=== PATIENT | female | born 1980 | race Caucasian/White ===

== ENCOUNTER 2017-11-24 20:38 | Emergency (ER) | payer SELFPAY, MEDICAID | END 2017-11-24 22:14 | disposition left against medical advice (07) | LOC: FTE 20:38 | DX: Z53.21 Procedure and treatment not carried out due to patient leaving prior to being seen by health care provider (principal) ==

== ENCOUNTER 2018-09-30 08:32 | Outpatient (CLI) | payer MEDICAID | END 2018-09-30 10:00 | disposition home or self-care (01) | LOC: OBT 08:32 → L-D 08:32 → OBT 10:00 | DX: O36.8130 Decreased fetal movements, third trimester, not applicable or unspecified (principal); O09.523 Supervision of elderly multigravida, third trimester; Z3A.40 40 weeks gestation of pregnancy | CPT/HCPCS: 76815; 76818 ==

== ENCOUNTER 2018-10-05 12:58 | Inpatient (IN) | payer MEDICAID ==
[2018-10-05] MEDS ORDERED: IBUPROFEN 600 MG TAB PO (14:30)
[2018-10-05] MEDS ORDERED: OXYTOCIN 30 UNITS/LR 500 ML IV (14:30)
[2018-10-05] MEDS ORDERED: OXYCODONE/ASPIRIN (4.88/325) TAB PO ×3 (14:30→21:30)
[2018-10-05] MEDS ORDERED: MISOPROSTOL 200 MCG TAB PR (14:30)
[2018-10-05] MEDS ORDERED: METHYLERGONOVINE 0.2 MG INJ IM (14:30)
[2018-10-05] MEDS ORDERED: LIDOCAINE 1% (MPF) 30 ML INJ INJ (14:30)
[2018-10-05] MEDS ORDERED: CARBOPROST 250 MCG INJ IM (14:30)
[2018-10-05] MEDS ORDERED: BUTORPHANOL 2 MG INJ IV (14:30)
[2018-10-05 15:35] LABS: ADD MAN DIFF? NO
[2018-10-05 15:37] LABS: BASOPHILS % 0.3 % (0.0-2.0); EOSINOPHILS # 0.3 10^3/ul (0.0-0.5); EOSINOPHILS % 2.5 % (0.0-7.0); HEMATOCRIT 38.1 % (37.0-47.0); HEMOGLOBIN 12.8 g/dl (12.0-16.0); LYMPHOCYTES # 1.8 10^3/ul (0.8-2.9); MEAN CORPUSCULAR HEMOGLOBIN 29.8 pg (29.0-33.0); MEAN CORPUSCULAR HGB CONC 33.6 g/dl (32.0-37.0); MEAN CORPUSCULAR VOLUME 88.6 fl (82.0-101.0); MEAN PLATELET VOLUME 10.6 fl (7.4-10.4); MONOCYTE # 0.6 10^3/ul (0.3-0.9); MONOCYTES % 5.7 % (0.0-11.0); NEUTROPHIL # 7.2 10^3/ul (1.6-7.5); NEUTROPHILS % 73.2 % (39.0-77.0); PLATELET COUNT 215 10^3/UL (140-415)
[2018-10-05 15:37] LABS: WHITE BLOOD COUNT 9.9 10^3/ul (4.8-10.8)
[2018-10-05 15:51] LABS: INR 0.93; PROTIME 12.6 Sec (11.9-14.9)
[2018-10-05 15:52] LABS: PARTIAL THROMBOPLASTIN TIME 25.2 Sec (23.0-35.0)
[2018-10-05 16:27] LABS: HEPATITIS B SURFACE ANTIGEN NEGATIVE (NEGATIVE)
[2018-10-05] MEDS: OXYTOCIN 30 UNITS/LR 500 ML IV ×4 (17:16→21:08)
[2018-10-05] MEDS: LACTATED RINGER'S 1,000 ML IV (18:24)
[2018-10-05] MEDS: BUTORPHANOL 2 MG INJ IV (18:30)
[2018-10-05] MEDS: MINERAL OIL LIGHT 10 ML VIAL TOP (19:36)
[2018-10-05 20:52] LABS: RAPID PLASMA REAGIN NONREACTIVE (NR)
[2018-10-05] MEDS ORDERED: LANOLIN 7 GM TUBE TOP (21:30)
[2018-10-05] MEDS ORDERED: ACETAMINOPHEN 325 MG TAB PO (21:30)
[2018-10-05] MEDS ORDERED: BENZOCAINE 20% 56 ML SPRAY TOP (21:30)
[2018-10-05] MEDS ORDERED: HYDROCODONE/APAP (5/325) TAB PO (21:30)
[2018-10-05] MEDS ORDERED: WITCH HAZEL/GLYCERIN PAD PR (21:30)
[2018-10-05] MEDS ORDERED: ONDANSETRON 4 MG INJ IV (21:30)
[2018-10-05] MEDS: SENNA/DOCUSATE NA (8.6MG/50MG) TAB PO (22:25)
[2018-10-05] MEDS: HYDROCODONE/APAP (5/325) TAB PO (22:29)
[2018-10-06] MEDS: IBUPROFEN 600 MG TAB PO ×5 (00:05→23:39)
[2018-10-06] MEDS: OXYTOCIN 30 UNITS/LR 500 ML IV (00:09)
[2018-10-06 07:36] LABS: ADD MAN DIFF? NO
[2018-10-06 07:38] LABS: WHITE BLOOD COUNT 11.6 10^3/ul (4.8-10.8)
[2018-10-06 07:38] LABS: BASOPHILS % 0.3 % (0.0-2.0); EOSINOPHILS # 0.1 10^3/ul (0.0-0.5); EOSINOPHILS % 1.2 % (0.0-7.0); HEMATOCRIT 34.3 % (37.0-47.0); HEMOGLOBIN 11.7 g/dl (12.0-16.0); LYMPHOCYTES # 1.9 10^3/ul (0.8-2.9); LYMPHOCYTES % 16.3 % (15.0-51.0); MEAN CORPUSCULAR HEMOGLOBIN 29.8 pg (29.0-33.0); MEAN CORPUSCULAR HGB CONC 34.1 g/dl (32.0-37.0); MEAN CORPUSCULAR VOLUME 87.3 fl (82.0-101.0); MEAN PLATELET VOLUME 10.3 fl (7.4-10.4); MONOCYTE # 0.7 10^3/ul (0.3-0.9); MONOCYTES % 6.3 % (0.0-11.0); NEUTROPHIL # 8.7 10^3/ul (1.6-7.5); NEUTROPHILS % 75.5 % (39.0-77.0); PLATELET COUNT 188 10^3/UL (140-415); RED BLOOD COUNT 3.93 10^6/ul (4.20-5.40); RED CELL DISTRIBUTION WIDTH 12.6 % (11.5-14.5)
[2018-10-06] MEDS: PRENATAL VITAMIN PO (09:24)
[2018-10-06] MEDS: SENNA/DOCUSATE NA (8.6MG/50MG) TAB PO ×2 (09:24→21:05)
[2018-10-07] MEDS: IBUPROFEN 600 MG TAB PO ×3 (05:32→17:57)
[2018-10-07] MEDS: MEASLES,MUMPS,RUBELLA VACCINE INJ SC* (09:00)
[2018-10-07] MEDS: SENNA/DOCUSATE NA (8.6MG/50MG) TAB PO (09:48)
[2018-10-07] MEDS: PRENATAL VITAMIN PO (09:48)
== END 2018-10-07 18:30 | disposition home or self-care (01) | DRG 807 ==
LOC: OBT 12:58 → L-D 12:58 → OBT 14:27 → L-D 14:27 → PP1 21:05
PROVIDERS: Obstetrics & Gynecology
PROC: 10E0XZZ Delivery of Products of Conception, External Approach (ICD-10-PCS; principal; 2018-10-05)
DX: O75.89 Other specified complications of labor and delivery (principal); Z37.0 Single live birth; Z3A.40 40 weeks gestation of pregnancy
CPT/HCPCS: 76815; 76818; 85025; 85610; 85730; 86592; 86850; 86900; 86901; 87340; 99464

== ENCOUNTER 2019-02-14 15:50 | Inpatient (IN) | payer MEDICAID ==
[2019-02-14] MEDS: ONDANSETRON 4 MG INJ IV ×2 (16:08→16:23)
[2019-02-14] MEDS: SOD CHLORIDE 0.9% 1,000 ML IV (16:08)
[2019-02-14] MEDS: morphine 4 MG/ML VIAL IV ×2 (16:08→16:23)
[2019-02-14 16:16] LABS: ADD MAN DIFF? NO
[2019-02-14 16:17] LABS: BASOPHILS % 0.3 % (0.0-2.0); EOSINOPHILS # 0.1 10^3/ul (0.0-0.5); HEMATOCRIT 47.3 % (37.0-47.0); HEMOGLOBIN 15.5 g/dl (12.0-16.0); LYMPHOCYTES # 2.9 10^3/ul (0.8-2.9); LYMPHOCYTES % 22.2 % (15.0-51.0); MEAN CORPUSCULAR HEMOGLOBIN 28.1 pg (29.0-33.0); MEAN CORPUSCULAR HGB CONC 32.8 g/dl (32.0-37.0); MEAN CORPUSCULAR VOLUME 85.8 fl (82.0-101.0); MEAN PLATELET VOLUME 10.3 fl (7.4-10.4); MONOCYTE # 0.6 10^3/ul (0.3-0.9); MONOCYTES % 4.8 % (0.0-11.0); NEUTROPHIL # 9.3 10^3/ul (1.6-7.5); NEUTROPHILS % 71.3 % (39.0-77.0); PLATELET COUNT 322 10^3/UL (140-415); RED BLOOD COUNT 5.51 10^6/ul (4.20-5.40)
[2019-02-14] MEDS: FAMOTIDINE 20 MG INJ IV ×2 (16:22→21:58)
[2019-02-14] MEDS: LIDOCAINE/MYLANTA 40 ML BTL PO (16:23)
[2019-02-14 16:38] LABS: ALANINE AMINOTRANSFERASE 580 IU/L (13-69); ALBUMIN 4.3 g/dl (3.3-4.9); ALBUMIN/GLOBULIN RATIO 1.19; ALKALINE PHOSPHATASE 248 IU/L (42-121); ANION GAP 11 (5-13); ASPARTATE AMINO TRANSFERASE 611 IU/L (15-46); BILIRUBIN,INDIRECT 0.8 mg/dl (0-1.1); BILIRUBIN,TOTAL 0.8 mg/dl (0.2-1.3); BLOOD UREA NITROGEN 10 mg/dl (7-20); CALCIUM 9.5 mg/dl (8.4-10.2); CARBON DIOXIDE 26 mmol/L (21-31); CHLORIDE 105 mmol/L (97-110); CREATININE 0.74 mg/dl (0.44-1.00); Estimated GFR > 60 mL/min (>60); GLUCOSE 173 mg/dl (70-220); POTASSIUM 3.5 mmol/L (3.5-5.1); SODIUM 142 mmol/L (135-144); TOTAL PROTEIN 7.9 g/dl (6.1-8.1)
[2019-02-14 17:22] LABS: LIPASE 30789 U/L (23-300)
[2019-02-14] MEDS: HYDROmorphONE 0.5 MG/0.5 ML SYG IV (18:02)
[2019-02-14 18:15] LABS: ADD UMIC YES; UR ASCORBIC ACID NEGATIVE (NEGATIVE); UR BILIRUBIN (Dip) NEGATIVE (NEGATIVE); UR BLOOD (Dip) 1+ mg/dL (NEGATIVE); UR CLARITY SLIGHTLY CLOUDY (CLEAR); UR COLOR YELLOW (YELLOW); UR GLUCOSE (Dip) NEGATIVE (NEGATIVE); UR KETONES (Dip) 1+ mg/dL (NEGATIVE); UR LEUKOCYTE ESTERASE (Dip) NEGATIVE Leu/ul (NEGATIVE); UR NITRITE (Dip) NEGATIVE (NEGATIVE); UR RBC 1 /HPF (0-5); UR SPECIFIC GRAVITY (Dip) 1.009 (1.003-1.030); UR SQUAMOUS EPITHELIAL CELL FEW /HPF (FEW); UR TOTAL PROTEIN (Dip) NEGATIVE (NEGATIVE); UR UROBILINOGEN (Dip) NEGATIVE (NEGATIVE); UR WBC 4 /HPF (0-5)
[2019-02-14] MEDS ORDERED: ONDANSETRON 4 MG INJ IV (18:30)
[2019-02-14] MEDS ORDERED: ACETAMINOPHEN 325 MG TAB PO (18:30)
[2019-02-14] MEDS ORDERED: NACL 0.9% 3 ML SYG IV (21:00)
[2019-02-14] MEDS: DEXTROSE 5%-0.45% NACL 1,000 ML IV (21:57)
[2019-02-15] MEDS: morphine 2 MG INJ IV ×2 (02:07→17:15)
[2019-02-15] MEDS: DEXTROSE 5%-0.45% NACL 1,000 ML IV ×4 (05:10→17:17)
[2019-02-15 05:26] LABS: ADD MAN DIFF? NO; BASOPHILS % 0.2 % (0.0-2.0); HEMATOCRIT 44.1 % (37.0-47.0); HEMOGLOBIN 14.2 g/dl (12.0-16.0); LYMPHOCYTES % 9.3 % (15.0-51.0); MEAN CORPUSCULAR HEMOGLOBIN 28.1 pg (29.0-33.0); MEAN CORPUSCULAR HGB CONC 32.2 g/dl (32.0-37.0); MEAN CORPUSCULAR VOLUME 87.2 fl (82.0-101.0); MEAN PLATELET VOLUME 10.4 fl (7.4-10.4); MONOCYTE # 0.8 10^3/ul (0.3-0.9); MONOCYTES % 7.2 % (0.0-11.0); NEUTROPHIL # 9.1 10^3/ul (1.6-7.5); PLATELET COUNT 262 10^3/UL (140-415); RED BLOOD COUNT 5.06 10^6/ul (4.20-5.40); RED CELL DISTRIBUTION WIDTH 13.2 % (11.5-14.5)
[2019-02-15 06:05] LABS: ALANINE AMINOTRANSFERASE 593 IU/L (13-69); ALBUMIN 3.6 g/dl (3.3-4.9); ALBUMIN/GLOBULIN RATIO 1.16; ALKALINE PHOSPHATASE 192 IU/L (42-121); ANION GAP 8 (5-13); ASPARTATE AMINO TRANSFERASE 494 IU/L (15-46); BILIRUBIN,INDIRECT 0.5 mg/dl (0-1.1); BILIRUBIN,TOTAL 0.5 mg/dl (0.2-1.3); BLOOD UREA NITROGEN 10 mg/dl (7-20); CALCIUM 8.3 mg/dl (8.4-10.2); CARBON DIOXIDE 29 mmol/L (21-31); CHLORIDE 104 mmol/L (97-110); Estimated GFR > 60 mL/min (>60); GLUCOSE 133 mg/dl (70-220); MAGNESIUM 2.2 mg/dl (1.7-2.5); POTASSIUM 3.8 mmol/L (3.5-5.1); SODIUM 141 mmol/L (135-144); TOTAL PROTEIN 6.7 g/dl (6.1-8.1)
[2019-02-15] MEDS: FAMOTIDINE 20 MG INJ IV ×2 (09:41→21:06)
[2019-02-15 10:13] LABS: INR 1.05; PROTIME 13.8 Sec (11.9-14.9); PT RATIO 1.1
[2019-02-15] MEDS: ONDANSETRON 4 MG INJ IV (13:34)
[2019-02-16] MEDS: DEXTROSE 5%-0.45% NACL 1,000 ML IV ×4 (01:44→22:50)
[2019-02-16 05:12] LABS: ADD MAN DIFF? NO
[2019-02-16 05:21] LABS: BASOPHILS % 0.2 % (0.0-2.0); EOSINOPHILS # 0.1 10^3/ul (0.0-0.5); EOSINOPHILS % 0.8 % (0.0-7.0); HEMATOCRIT 41.7 % (37.0-47.0); HEMOGLOBIN 13.6 g/dl (12.0-16.0); MEAN CORPUSCULAR HGB CONC 32.6 g/dl (32.0-37.0); MEAN PLATELET VOLUME 10.1 fl (7.4-10.4); MONOCYTE # 0.6 10^3/ul (0.3-0.9); MONOCYTES % 6.2 % (0.0-11.0); NEUTROPHIL # 8.5 10^3/ul (1.6-7.5); NEUTROPHILS % 82.4 % (39.0-77.0); PLATELET COUNT 229 10^3/UL (140-415); RED BLOOD COUNT 4.85 10^6/ul (4.20-5.40); RED CELL DISTRIBUTION WIDTH 13.1 % (11.5-14.5)
[2019-02-16 05:21] LABS: WHITE BLOOD COUNT 10.3 10^3/ul (4.8-10.8)
[2019-02-16 05:31] LABS: PHOSPHORUS 2.8 mg/dl (2.5-4.9)
[2019-02-16 05:31] LABS: MAGNESIUM 2.2 mg/dl (1.7-2.5)
[2019-02-16 05:38] LABS: ALANINE AMINOTRANSFERASE 323 IU/L (13-69); ALBUMIN 3.2 g/dl (3.3-4.9); ALBUMIN/GLOBULIN RATIO 1.06; ALKALINE PHOSPHATASE 164 IU/L (42-121); ANION GAP 4 (5-13); ASPARTATE AMINO TRANSFERASE 113 IU/L (15-46); BILIRUBIN,INDIRECT 0.7 mg/dl (0-1.1); BILIRUBIN,TOTAL 0.7 mg/dl (0.2-1.3); BLOOD UREA NITROGEN 7 mg/dl (7-20); CALCIUM 8.2 mg/dl (8.4-10.2); CARBON DIOXIDE 29 mmol/L (21-31); CHLORIDE 104 mmol/L (97-110); CREATININE 0.54 mg/dl (0.44-1.00); Estimated GFR > 60 mL/min (>60); GLUCOSE 105 mg/dl (70-220); POTASSIUM 3.2 mmol/L (3.5-5.1); SODIUM 137 mmol/L (135-144); TOTAL PROTEIN 6.2 g/dl (6.1-8.1)
[2019-02-16 06:05] LABS: AMYLASE 1470 U/L (11-123)
[2019-02-16 06:53] LABS: LIPASE 5990 U/L (23-300)
[2019-02-16] MEDS: FAMOTIDINE 20 MG INJ IV ×2 (09:07→21:35)
[2019-02-16] MEDS: morphine 2 MG INJ IV (09:08)
[2019-02-16] MEDS: POTASSIUM CHLORIDE 100 ML IVPB ×3 (12:13→22:46)
[2019-02-16] MEDS ORDERED: IOHEXOL 300MG/ML 30 ML BTL (13:36)
[2019-02-16] MEDS ORDERED: SUCCINYLCHOLINE CHLORIDE 100 MG/5 ML SYG IV (14:15)
[2019-02-16] MEDS ORDERED: GLYCOPYRROLATE 0.4 MG INJ ×2 (14:15→15:30)
[2019-02-16] MEDS ORDERED: ROCURONIUM 50 MG INJ (14:15)
[2019-02-16] MEDS ORDERED: PROPOFOL 20 ML (14:15)
[2019-02-16] MEDS ORDERED: LIDOCAINE 2% (SDV) 5 ML INJ (14:15)
[2019-02-16] MEDS ORDERED: NEOSTIGMINE 3 MG/3 ML SYRINGE ×2 (14:15→15:30)
[2019-02-16] MEDS ORDERED: METOCLOPRAMIDE 10 MG INJ IV (15:00)
[2019-02-16] MEDS ORDERED: FENTAnyl 50 MCG/ML VIAL IV ×3 (15:00)
[2019-02-16] MEDS ORDERED: DIPHENHYDRAMINE 50 MG INJ IV (15:00)
[2019-02-16] MEDS ORDERED: hydrALAzine 20 MG INJ IV (15:00)
[2019-02-16] MEDS ORDERED: MEPERIDINE 25 MG INJ IV (15:00)
[2019-02-16] MEDS ORDERED: LABETALOL HCL 20MG INJ IV (15:00)
[2019-02-16] MEDS ORDERED: ONDANSETRON 4 MG INJ IV (15:00)
[2019-02-16] MEDS ORDERED: EPHEDrine SULFATE 50 MG/5 ML SYG IV (15:00)
[2019-02-16] MEDS ORDERED: MIDAZOLAM 1 MG/ML 2 ML INJ IV (15:00)
[2019-02-16] MEDS ORDERED: METOCLOPRAMIDE 10 MG INJ (15:27)
[2019-02-16] MEDS ORDERED: ONDANSETRON 4 MG INJ (15:27)
[2019-02-16] MEDS ORDERED: FENTAnyl 50 MCG/ML VIAL (15:56)
[2019-02-17 05:46] LABS: ADD MAN DIFF? NO
[2019-02-17 05:47] LABS: BASOPHILS % 0.3 % (0.0-2.0); EOSINOPHILS # 0.2 10^3/ul (0.0-0.5); HEMATOCRIT 37.9 % (37.0-47.0); HEMOGLOBIN 12.2 g/dl (12.0-16.0); LYMPHOCYTES # 1.2 10^3/ul (0.8-2.9); LYMPHOCYTES % 12.5 % (15.0-51.0); MEAN CORPUSCULAR HEMOGLOBIN 28.2 pg (29.0-33.0); MEAN CORPUSCULAR HGB CONC 32.2 g/dl (32.0-37.0); MEAN CORPUSCULAR VOLUME 87.5 fl (82.0-101.0); MEAN PLATELET VOLUME 10.3 fl (7.4-10.4); MONOCYTE # 0.7 10^3/ul (0.3-0.9); MONOCYTES % 7.7 % (0.0-11.0); NEUTROPHIL # 7.2 10^3/ul (1.6-7.5); NEUTROPHILS % 77.3 % (39.0-77.0); PLATELET COUNT 196 10^3/UL (140-415); RED BLOOD COUNT 4.33 10^6/ul (4.20-5.40); RED CELL DISTRIBUTION WIDTH 12.4 % (11.5-14.5)
[2019-02-17 05:47] LABS: WHITE BLOOD COUNT 9.3 10^3/ul (4.8-10.8)
[2019-02-17 06:25] LABS: ALANINE AMINOTRANSFERASE 205 IU/L (13-69); ALKALINE PHOSPHATASE 133 IU/L (42-121); AMYLASE 545 U/L (11-123); ANION GAP 7 (5-13); ASPARTATE AMINO TRANSFERASE 60 IU/L (15-46); BILIRUBIN,INDIRECT 0.6 mg/dl (0-1.1); BILIRUBIN,TOTAL 0.6 mg/dl (0.2-1.3); BLOOD UREA NITROGEN 8 mg/dl (7-20); CALCIUM 8.2 mg/dl (8.4-10.2); CARBON DIOXIDE 32 mmol/L (21-31); CHLORIDE 101 mmol/L (97-110); Estimated GFR > 60 mL/min (>60); GLUCOSE 93 mg/dl (70-220); LIPASE 1343 U/L (23-300); POTASSIUM 3.3 mmol/L (3.5-5.1); SODIUM 140 mmol/L (135-144)
[2019-02-17 06:46] LABS: PHOSPHORUS 2.9 mg/dl (2.5-4.9)
[2019-02-17 06:46] LABS: MAGNESIUM 2.2 mg/dl (1.7-2.5)
[2019-02-17] MEDS: DEXTROSE 5%-0.45% NACL 1,000 ML IV ×4 (07:40→23:57)
[2019-02-17 09:19] LABS: HDL CHOLESTEROL 25 mg/dl (34-82); LDL CHOLESTEROL,CALCULATED 60 mg/dl; TRIGLYCERIDES 78 mg/dl (0-149)
[2019-02-17 09:19] LABS: CHOLESTEROL 101 mg/dl (100-200)
[2019-02-17 09:28] LABS: HEMOGLOBIN A1C 5.2 % (0-5.9)
[2019-02-17] MEDS: FAMOTIDINE 20 MG INJ IV ×2 (10:43→20:29)
[2019-02-17] MEDS: POTASSIUM CHLORIDE 100 ML IVPB (19:54)
[2019-02-18 05:11] LABS: ADD MAN DIFF? NO
[2019-02-18 05:18] LABS: BASOPHILS % 0.3 % (0.0-2.0); EOSINOPHILS # 0.4 10^3/ul (0.0-0.5); HEMATOCRIT 36.6 % (37.0-47.0); HEMOGLOBIN 12.2 g/dl (12.0-16.0); LYMPHOCYTES # 1.3 10^3/ul (0.8-2.9); LYMPHOCYTES % 14.4 % (15.0-51.0); MEAN CORPUSCULAR HEMOGLOBIN 28.5 pg (29.0-33.0); MEAN CORPUSCULAR HGB CONC 33.3 g/dl (32.0-37.0); MEAN CORPUSCULAR VOLUME 85.5 fl (82.0-101.0); MEAN PLATELET VOLUME 10.3 fl (7.4-10.4); MONOCYTE # 0.7 10^3/ul (0.3-0.9); MONOCYTES % 8.2 % (0.0-11.0); NEUTROPHIL # 6.6 10^3/ul (1.6-7.5); NEUTROPHILS % 72.9 % (39.0-77.0); PLATELET COUNT 196 10^3/UL (140-415); RED BLOOD COUNT 4.28 10^6/ul (4.20-5.40); RED CELL DISTRIBUTION WIDTH 12.4 % (11.5-14.5)
[2019-02-18 05:41] LABS: PHOSPHORUS 2.7 mg/dl (2.5-4.9)
[2019-02-18 05:41] LABS: MAGNESIUM 2.1 mg/dl (1.7-2.5)
[2019-02-18 05:42] LABS: ALANINE AMINOTRANSFERASE 143 IU/L (13-69); ALBUMIN 3.1 g/dl (3.3-4.9); ALBUMIN/GLOBULIN RATIO 1.03; ALKALINE PHOSPHATASE 118 IU/L (42-121); AMYLASE 242 U/L (11-123); ANION GAP 6 (5-13); ASPARTATE AMINO TRANSFERASE 29 IU/L (15-46); BILIRUBIN,INDIRECT 0.7 mg/dl (0-1.1); BILIRUBIN,TOTAL 0.7 mg/dl (0.2-1.3); BLOOD UREA NITROGEN 7 mg/dl (7-20); CALCIUM 7.9 mg/dl (8.4-10.2); CARBON DIOXIDE 31 mmol/L (21-31); CHLORIDE 101 mmol/L (97-110); CREATININE 0.57 mg/dl (0.44-1.00); Estimated GFR > 60 mL/min (>60); GLUCOSE 103 mg/dl (70-220); LIPASE 795 U/L (23-300); POTASSIUM 3.3 mmol/L (3.5-5.1); SODIUM 138 mmol/L (135-144); TOTAL PROTEIN 6.1 g/dl (6.1-8.1)
[2019-02-18] MEDS: FAMOTIDINE 20 MG INJ IV ×2 (08:20→21:36)
[2019-02-18] MEDS: DEXTROSE 5%-0.45% NACL 1,000 ML IV ×2 (09:42→19:24)
[2019-02-18] MEDS: POTASSIUM CHLORIDE (SR) 20 MEQ TAB PO (10:47)
[2019-02-19] MEDS: morphine 2 MG INJ IV (00:07)
[2019-02-19] MEDS: DEXTROSE 5%-0.45% NACL 1,000 ML IV (03:06)
[2019-02-19 05:53] LABS: ADD MAN DIFF? NO
[2019-02-19 06:03] LABS: BASOPHILS % 0.3 % (0.0-2.0); EOSINOPHILS # 0.4 10^3/ul (0.0-0.5); EOSINOPHILS % 5.3 % (0.0-7.0); HEMATOCRIT 36.6 % (37.0-47.0); LYMPHOCYTES # 1.6 10^3/ul (0.8-2.9); LYMPHOCYTES % 23.3 % (15.0-51.0); MEAN CORPUSCULAR HEMOGLOBIN 28.3 pg (29.0-33.0); MEAN CORPUSCULAR HGB CONC 32.8 g/dl (32.0-37.0); MEAN CORPUSCULAR VOLUME 86.3 fl (82.0-101.0); MEAN PLATELET VOLUME 10.1 fl (7.4-10.4); MONOCYTE # 0.5 10^3/ul (0.3-0.9); MONOCYTES % 7.8 % (0.0-11.0); NEUTROPHIL # 4.3 10^3/ul (1.6-7.5); PLATELET COUNT 215 10^3/UL (140-415); RED BLOOD COUNT 4.24 10^6/ul (4.20-5.40); RED CELL DISTRIBUTION WIDTH 12.2 % (11.5-14.5)
[2019-02-19 06:03] LABS: WHITE BLOOD COUNT 6.8 10^3/ul (4.8-10.8)
[2019-02-19 06:16] LABS: LIPASE 903 U/L (23-300)
[2019-02-19 06:16] LABS: AMYLASE 174 U/L (11-123)
[2019-02-19 06:29] LABS: PHOSPHORUS 3.5 mg/dl (2.5-4.9)
[2019-02-19 06:29] LABS: MAGNESIUM 2.1 mg/dl (1.7-2.5)
[2019-02-19 06:43] LABS: ALANINE AMINOTRANSFERASE 107 IU/L (13-69); ALKALINE PHOSPHATASE 108 IU/L (42-121); ANION GAP 7 (5-13); ASPARTATE AMINO TRANSFERASE 21 IU/L (15-46); BILIRUBIN,INDIRECT 0.5 mg/dl (0-1.1); BILIRUBIN,TOTAL 0.5 mg/dl (0.2-1.3); BLOOD UREA NITROGEN 5 mg/dl (7-20); CALCIUM 8.3 mg/dl (8.4-10.2); CARBON DIOXIDE 30 mmol/L (21-31); CHLORIDE 102 mmol/L (97-110); CREATININE 0.56 mg/dl (0.44-1.00); Estimated GFR > 60 mL/min (>60); GLUCOSE 100 mg/dl (70-220); POTASSIUM 3.2 mmol/L (3.5-5.1); SODIUM 139 mmol/L (135-144)
[2019-02-19] MEDS: POTASSIUM CHLORIDE (SR) 20 MEQ TAB PO (07:35)
[2019-02-19] MEDS: FAMOTIDINE 20 MG INJ IV (08:05)
== END 2019-02-19 12:00 | disposition home or self-care (01) | DRG 439 ==
LOC: E/R 15:50 → MS1 19:16
PROC: 0FC98ZZ Extirpation of Matter from Common Bile Duct, Via Natural or Artificial Opening Endoscopic (ICD-10-PCS; principal; 2019-02-16 14:13)
PROC: 0F7D8DZ Dilation of Pancreatic Duct with Intraluminal Device, Via Natural or Artificial Opening Endoscopic (ICD-10-PCS; 2019-02-16 14:13)
PROC: 0F798DZ Dilation of Common Bile Duct with Intraluminal Device, Via Natural or Artificial Opening Endoscopic (ICD-10-PCS; 2019-02-16 14:13)
DX: K85.10 Biliary acute pancreatitis without necrosis or infection (principal); K80.71 Calculus of gallbladder and bile duct without cholecystitis with obstruction; E66.9 Obesity, unspecified; Z68.31 Body mass index [BMI] 31.0-31.9, adult
CPT/HCPCS: 36415; 74181; 74330; 76705; 80053; 80061; 81001; 81025; 82150; 83036; 83690; 83735; 84100; 85025; 85610; 96374; 96375; 96376; 99285-25

== ENCOUNTER 2019-02-24 03:52 | Emergency (ER) | payer MEDICAID ==
[2019-02-24] MEDS: ONDANSETRON 4 MG INJ IV (05:07)
[2019-02-24] MEDS: KETOROLAC 30 MG INJ IV (05:07)
[2019-02-24 05:13] LABS: ADD MAN DIFF? NO
[2019-02-24 05:14] LABS: BASOPHILS % 0.3 % (0.0-2.0); EOSINOPHILS # 0.2 10^3/ul (0.0-0.5); EOSINOPHILS % 1.6 % (0.0-7.0); HEMATOCRIT 44.4 % (37.0-47.0); HEMOGLOBIN 14.3 g/dl (12.0-16.0); LYMPHOCYTES # 1.2 10^3/ul (0.8-2.9); LYMPHOCYTES % 9.6 % (15.0-51.0); MEAN CORPUSCULAR HEMOGLOBIN 27.8 pg (29.0-33.0); MEAN CORPUSCULAR HGB CONC 32.2 g/dl (32.0-37.0); MEAN CORPUSCULAR VOLUME 86.2 fl (82.0-101.0); MEAN PLATELET VOLUME 9.7 fl (7.4-10.4); MONOCYTE # 0.6 10^3/ul (0.3-0.9); MONOCYTES % 4.8 % (0.0-11.0); NEUTROPHIL # 10.5 10^3/ul (1.6-7.5); NEUTROPHILS % 83.5 % (39.0-77.0); PLATELET COUNT 385 10^3/UL (140-415); RED BLOOD COUNT 5.15 10^6/ul (4.20-5.40)
[2019-02-24 05:14] LABS: WHITE BLOOD COUNT 12.6 10^3/ul (4.8-10.8)
[2019-02-24 06:16] LABS: ADD UMIC YES; UR ASCORBIC ACID NEGATIVE (NEGATIVE); UR BACTERIA FEW /HPF (NONE SEEN); UR BILIRUBIN (Dip) NEGATIVE (NEGATIVE); UR BLOOD (Dip) 1+ mg/dL (NEGATIVE); UR CLARITY CLOUDY (CLEAR); UR COLOR AMBER (YELLOW); UR GLUCOSE (Dip) NEGATIVE (NEGATIVE); UR KETONES (Dip) 1+ mg/dL (NEGATIVE); UR LEUKOCYTE ESTERASE (Dip) 1+ Leu/ul (NEGATIVE); UR MUCUS MODERATE /HPF (NONE SEEN); UR NITRITE (Dip) NEGATIVE (NEGATIVE); UR RBC 2 /HPF (0-5); UR SPECIFIC GRAVITY (Dip) 1.032 (1.003-1.030); UR SQUAMOUS EPITHELIAL CELL MANY /HPF (FEW); UR TOTAL PROTEIN (Dip) 1+ mg/dl (NEGATIVE); UR UROBILINOGEN (Dip) NEGATIVE (NEGATIVE); UR WBC 18 /HPF (0-5)
[2019-02-24 06:20] LABS: ALANINE AMINOTRANSFERASE 52 IU/L (13-69); ALBUMIN 4.2 g/dl (3.3-4.9); ALBUMIN/GLOBULIN RATIO 1.02; ALKALINE PHOSPHATASE 136 IU/L (42-121); ANION GAP 10 (5-13); ASPARTATE AMINO TRANSFERASE 22 IU/L (15-46); BILIRUBIN,INDIRECT 0.2 mg/dl (0-1.1); BILIRUBIN,TOTAL 0.2 mg/dl (0.2-1.3); BLOOD UREA NITROGEN 16 mg/dl (7-20); CALCIUM 9.6 mg/dl (8.4-10.2); CARBON DIOXIDE 30 mmol/L (21-31); CHLORIDE 104 mmol/L (97-110); CREATININE 0.73 mg/dl (0.44-1.00); Estimated GFR > 60 mL/min (>60); GLUCOSE 129 mg/dl (70-220); LIPASE 612 U/L (23-300); POTASSIUM 3.8 mmol/L (3.5-5.1); SODIUM 144 mmol/L (135-144); TOTAL PROTEIN 8.3 g/dl (6.1-8.1)
== END 2019-02-24 06:58 | disposition home or self-care (01) ==
LOC: FTE 03:52
DX: K80.50 Calculus of bile duct without cholangitis or cholecystitis without obstruction (principal)
CPT/HCPCS: 36415; 76705; 80053; 81001; 81025; 83690; 85025; 96374; 96375; 99285-25

== ENCOUNTER 2019-04-04 00:48 | Inpatient (IN) | payer MEDICAID ==
[2019-04-04] MEDS: SODIUM CHLORIDE 0.9% 1L BAG IV* (02:16)
[2019-04-04 02:19] LABS: HEMATOCRIT 28.7 % (37.0-47.0); HEMOGLOBIN 9.1 g/dl (12.0-16.0); MEAN CORPUSCULAR HEMOGLOBIN 26.1 pg (29.0-33.0); MEAN CORPUSCULAR HGB CONC 31.7 g/dl (32.0-37.0); MEAN CORPUSCULAR VOLUME 82.5 fl (82.0-101.0); MEAN PLATELET VOLUME 10.2 fl (7.4-10.4); PLATELET COUNT 455 10^3/UL (140-415); RED BLOOD COUNT 3.48 10^6/ul (4.20-5.40); RED CELL DISTRIBUTION WIDTH 14.8 % (11.5-14.5)
[2019-04-04 02:19] LABS: WHITE BLOOD COUNT 10.4 10^3/ul (4.8-10.8)
[2019-04-04] MEDS: CEFTRIAXONE 1 GM/50 ML (PMX) 50 ML IVPB (02:19)
[2019-04-04 02:22] LABS: ADD MAN DIFF? YES; POSITIVE DIFF @See below
[2019-04-04 02:36] LABS: ALANINE AMINOTRANSFERASE 28 IU/L (13-69); ALBUMIN 2.9 g/dl (3.3-4.9); ALBUMIN/GLOBULIN RATIO 0.58; ALKALINE PHOSPHATASE 310 IU/L (42-121); ANION GAP 8 (5-13); ASPARTATE AMINO TRANSFERASE 40 IU/L (15-46); BILIRUBIN,INDIRECT 0.6 mg/dl (0-1.1); BILIRUBIN,TOTAL 0.6 mg/dl (0.2-1.3); BLOOD UREA NITROGEN 15 mg/dl (7-20); CARBON DIOXIDE 28 mmol/L (21-31); CHLORIDE 99 mmol/L (97-110); CREATININE 0.87 mg/dl (0.44-1.00); Estimated GFR > 60 mL/min (>60); GLUCOSE 115 mg/dl (70-220); POTASSIUM 3.7 mmol/L (3.5-5.1); SODIUM 135 mmol/L (135-144); TOTAL PROTEIN 7.9 g/dl (6.1-8.1)
[2019-04-04 02:41] LABS: INR 1.22; PROTIME 15.5 Sec (11.9-14.9); PT RATIO 1.2
[2019-04-04 02:42] LABS: PARTIAL THROMBOPLASTIN TIME 29.4 Sec (23.0-35.0)
[2019-04-04 02:48] LABS: TROPONIN-I < 0.012 ng/ml (0.000-0.120)
[2019-04-04] MEDS: KETOROLAC 30 MG INJ IV (02:48)
[2019-04-04 02:58] LABS: BAND NEUTROPHILS % (M) 20 % (0-4); EOSINOPHILS % (M) 1 % (0-7); GIANT THROMBO% (M) 3 % (0-0); LYMPHOCYTES % (M) 29 % (15-51); MONOCYTE #M 1.3 10^3/ul (0.3-0.9); MONOCYTES % (M) 13 % (0-11); PLATELET ESTIMATE NORMAL; POLYCHROMASIA 2+ (0-0); SEG NEUT #M 4.1 10^3/ul (1.6-7.5); SEGMENTED NEUTROPHILS (M) % 37 % (39-77); SMUDGE%M 6 % (0-0)
[2019-04-04 03:36] LABS: ADD UMIC YES; UR ASCORBIC ACID NEGATIVE (NEGATIVE); UR BACTERIA FEW /HPF (NONE SEEN); UR BILIRUBIN (Dip) NEGATIVE (NEGATIVE); UR BLOOD (Dip) NEGATIVE (NEGATIVE); UR CLARITY SLIGHTLY CLOUDY (CLEAR); UR COLOR AMBER (YELLOW); UR GLUCOSE (Dip) NEGATIVE (NEGATIVE); UR KETONES (Dip) NEGATIVE (NEGATIVE); UR LEUKOCYTE ESTERASE (Dip) NEGATIVE Leu/ul (NEGATIVE); UR MUCUS FEW /HPF (NONE SEEN); UR NITRITE (Dip) NEGATIVE (NEGATIVE); UR RBC 2 /HPF (0-5); UR SPECIFIC GRAVITY (Dip) 1.023 (1.003-1.030); UR SQUAMOUS EPITHELIAL CELL FEW /HPF (FEW); UR TOTAL PROTEIN (Dip) 1+ mg/dl (NEGATIVE); UR UROBILINOGEN (Dip) 2+ mg/dL (NEGATIVE); UR WBC 4 /HPF (0-5)
[2019-04-04] MEDS: ONDANSETRON 4 MG INJ IV (04:16)
[2019-04-04] MEDS: PIPER-TAZO 3.375 GM IV (PMX) 100 ML IVPB ×4 (04:16→23:47)
[2019-04-04] MEDS: morphine 4 MG/ML VIAL IV (04:16)
[2019-04-04 04:58] LABS: LACTIC ACID 0.9 mmol/L (0.5-2.0)
[2019-04-04] MEDS ORDERED: ONDANSETRON 4 MG INJ IV (05:00)
[2019-04-04 05:05] LABS: LIPASE 93 U/L (23-300)
[2019-04-04] MEDS: SOD CHLORIDE 0.9% 1,000 ML IV ×4 (05:09→18:21)
[2019-04-04] MEDS: FAMOTIDINE 20 MG INJ IV ×2 (08:26→21:35)
[2019-04-04 09:19] LABS: LACTIC ACID 1.2 mmol/L (0.5-2.0)
[2019-04-04] MEDS ORDERED: VANCOMYCIN IV PER PHARMACY XX (15:30)
[2019-04-04] MEDS: LIDOCAINE 1% (MPF) 5 ML VIAL (16:34)
[2019-04-04] MEDS: FENTAnyl 50 MCG/ML VIAL (16:35)
[2019-04-04] MEDS: SOD CHLORIDE 0.9% 500 ML (16:35)
[2019-04-04] MEDS: SOD CHLORIDE 0.9% 100 ML (16:35)
[2019-04-04] MEDS: MIDAZOLAM 1 MG/ML 2 ML INJ (16:36)
[2019-04-04] MEDS: LIDOCAINE 1% (MDV) 20 ML INJ (16:38)
[2019-04-04] MEDS: VANCOMYCIN HCL 1.5 GM in SOD CHLORIDE 0.9% 250 ML IVPB (16:45)
[2019-04-04] MEDS ORDERED: ACETAMINOPHEN 650MG/20.3ML CUP (17:05)
[2019-04-04] MEDS ORDERED: ACETAMINOPHEN 650MG/20.3ML CUP PO (17:30)
[2019-04-04] MEDS ORDERED: ACETAMINOPHEN 325 MG TAB PO (17:30)
[2019-04-04] MEDS: HYDROCODONE/APAP (5/325) TAB PO (17:35)
[2019-04-04] MEDS: ACETAMINOPHEN 1000MG/100ML IV 100 ML IVPB (17:36)
[2019-04-04] MEDS: ACETAMINOPHEN 325 MG TAB PO (21:36)
[2019-04-05] MEDS: SOD CHLORIDE 0.9% 1,000 ML IV ×4 (00:25→17:15)
[2019-04-05] MEDS: VANCOMYCIN 750 MG (PMX) 250 ML IVPB ×3 (01:44→18:36)
[2019-04-05] MEDS ORDERED: ATROPINE 1 MG/10 ML SYRINGE (03:13)
[2019-04-05] MEDS: LACTATED RINGER'S 1,000 ML IV (04:09)
[2019-04-05 05:27] LABS: WHITE BLOOD COUNT 6.2 10^3/ul (4.8-10.8)
[2019-04-05 05:27] LABS: HEMATOCRIT 23.6 % (37.0-47.0); HEMOGLOBIN 7.3 g/dl (12.0-16.0); MEAN CORPUSCULAR HEMOGLOBIN 26.1 pg (29.0-33.0); MEAN CORPUSCULAR HGB CONC 30.9 g/dl (32.0-37.0); MEAN CORPUSCULAR VOLUME 84.3 fl (82.0-101.0); MEAN PLATELET VOLUME 10.2 fl (7.4-10.4); PLATELET COUNT 249 10^3/UL (140-415); RED CELL DISTRIBUTION WIDTH 15.3 % (11.5-14.5)
[2019-04-05 05:31] LABS: ADD MAN DIFF? YES; POSITIVE DIFF @See below
[2019-04-05 05:39] LABS: LACTIC ACID 1.5 mmol/L (0.5-2.0)
[2019-04-05 05:48] LABS: ALANINE AMINOTRANSFERASE 32 IU/L (13-69); ALBUMIN 1.7 g/dl (3.3-4.9); ALBUMIN/GLOBULIN RATIO 0.58; ALKALINE PHOSPHATASE 168 IU/L (42-121); ANION GAP 6 (5-13); ASPARTATE AMINO TRANSFERASE 32 IU/L (15-46); BILIRUBIN,INDIRECT 0.4 mg/dl (0-1.1); BILIRUBIN,TOTAL 0.4 mg/dl (0.2-1.3); BLOOD UREA NITROGEN 11 mg/dl (7-20); CALCIUM 6.7 mg/dl (8.4-10.2); CARBON DIOXIDE 23 mmol/L (21-31); CHLORIDE 110 mmol/L (97-110); CREATININE 0.62 mg/dl (0.44-1.00); Estimated GFR > 60 mL/min (>60); GLUCOSE 100 mg/dl (70-220); MAGNESIUM 1.7 mg/dl (1.7-2.5); PHOSPHORUS 3.8 mg/dl (2.5-4.9); SODIUM 139 mmol/L (135-144); TOTAL PROTEIN 4.6 g/dl (6.1-8.1)
[2019-04-05 05:51] LABS: POTASSIUM 3.9 mmol/L (3.5-5.1)
[2019-04-05 06:26] LABS: HEMOGLOBIN A1C 5.9 % (0-5.9)
[2019-04-05] MEDS: LIDOCAINE 1% (MPF) 5 ML VIAL SC (06:30)
[2019-04-05] MEDS: PIPER-TAZO 3.375 GM IV (PMX) 100 ML IVPB ×4 (06:40→23:48)
[2019-04-05 07:15] LABS: BAND NEUTROPHILS #M 1.4 10^3/ul (0.0-0.6); BAND NEUTROPHILS % (M) 24 % (0-4); BURR CELLS 2+ (0-0); ERYTHROBLAST% (NRBC) (M) 1 % (0-0); GIANT THROMBO% (M) 4 % (0-0); LYMPHOCYTES #M 0.8 10^3/ul (0.8-2.9); LYMPHOCYTES % (M) 14 % (15-51); MONOCYTE #M 0.3 10^3/ul (0.3-0.9); MONOCYTES % (M) 5 % (0-11); PLATELET ESTIMATE NORMAL; PLATELET MORPHOLOGY COMMENT @See below; POIKILOCYTOSIS 2+ (0-0); POLYCHROMASIA 1+ (0-0); SEG NEUT #M 3.6 10^3/ul (1.6-7.5); SEGMENTED NEUTROPHILS (M) % 57 % (39-77); SMUDGE%M 11 % (0-0)
[2019-04-05 07:17] LABS: TOXIC GRANULATION 1+ (0-0)
[2019-04-05] MEDS ORDERED: NORepinephrine 8MG/250 ML (PMX 250 ML IV (07:30)
[2019-04-05 08:08] LABS: ERYTHROCYTE SEDIMENTATION RATE 62 mm/Hr (0-20)
[2019-04-05 09:10] LABS: IMMEDIATE SPIN CROSSMATCH 1 1
[2019-04-05] MEDS: FAMOTIDINE 20 MG INJ IV ×2 (09:32→21:24)
[2019-04-05] MEDS ORDERED: ALBUMIN HUMAN 5% 250 ML (10:40)
[2019-04-05] MEDS: ALBUMIN HUMAN 5% 250 ML IV (10:44)
[2019-04-05 17:55] LABS: VANCOMYCIN,TROUGH 10.7 ug/ml (10.0-20.0)
[2019-04-06] MEDS: VANCOMYCIN 750 MG (PMX) 250 ML IVPB ×2 (02:15→09:53)
[2019-04-06] MEDS: SOD CHLORIDE 0.9% 1,000 ML IV ×2 (04:00→14:51)
[2019-04-06] MEDS: PIPER-TAZO 3.375 GM IV (PMX) 100 ML IVPB ×4 (05:40→23:29)
[2019-04-06 05:50] LABS: HEMOGLOBIN 8.6 g/dl (12.0-16.0); MEAN CORPUSCULAR HEMOGLOBIN 26.5 pg (29.0-33.0); MEAN CORPUSCULAR HGB CONC 31.9 g/dl (32.0-37.0); MEAN CORPUSCULAR VOLUME 83.1 fl (82.0-101.0); MEAN PLATELET VOLUME 10.5 fl (7.4-10.4); PLATELET COUNT 327 10^3/UL (140-415); RED BLOOD COUNT 3.25 10^6/ul (4.20-5.40); RED CELL DISTRIBUTION WIDTH 15.6 % (11.5-14.5)
[2019-04-06 05:50] LABS: WHITE BLOOD COUNT 10.9 10^3/ul (4.8-10.8)
[2019-04-06 05:56] LABS: ADD MAN DIFF? YES; POSITIVE DIFF @See below
[2019-04-06 06:02] LABS: ANION GAP 5 (5-13); BLOOD UREA NITROGEN 7 mg/dl (7-20); CALCIUM 7.2 mg/dl (8.4-10.2); CARBON DIOXIDE 23 mmol/L (21-31); CHLORIDE 110 mmol/L (97-110); CREATININE 0.64 mg/dl (0.44-1.00); Estimated GFR > 60 mL/min (>60); GLUCOSE 80 mg/dl (70-220); POTASSIUM 3.6 mmol/L (3.5-5.1); SODIUM 138 mmol/L (135-144)
[2019-04-06] MEDS: morphine 2 MG INJ IV ×2 (06:44→19:57)
[2019-04-06 09:16] LABS: BAND NEUTROPHILS #M 0.9 10^3/ul (0.0-0.6); BAND NEUTROPHILS % (M) 9 % (0-4); BURR CELLS 1+ (0-0); EOSINOPHILS % (M) 1 % (0-7); GIANT THROMBO% (M) 3 % (0-0); LYMPHOCYTES #M 1.1 10^3/ul (0.8-2.9); LYMPHOCYTES % (M) 11 % (15-51); MONOCYTE #M 0.2 10^3/ul (0.3-0.9); MONOCYTES % (M) 2 % (0-11); PLATELET ESTIMATE NORMAL; POIKILOCYTOSIS 1+ (0-0); POLYCHROMASIA 3+ (0-0); REACTIVE LYMPHOCYTES #M 0.1 10^3/ul (0.0-0.0); REACTIVE LYMPHOCYTES% (M) 1 % (0-0); SEG NEUT #M 8.4 10^3/ul (1.6-7.5); SEGMENTED NEUTROPHILS (M) % 76 % (39-77)
[2019-04-06] MEDS: FAMOTIDINE 20 MG INJ IV ×2 (09:52→21:11)
[2019-04-07] MEDS: morphine 2 MG INJ IV ×2 (01:41→05:42)
[2019-04-07] MEDS: PIPER-TAZO 3.375 GM IV (PMX) 100 ML IVPB ×2 (05:43→11:43)
[2019-04-07 06:04] LABS: ADD MAN DIFF? NO
[2019-04-07 06:09] LABS: BASOPHILS % 0.3 % (0.0-2.0); EOSINOPHILS # 0.1 10^3/ul (0.0-0.5); EOSINOPHILS % 1.7 % (0.0-7.0); HEMATOCRIT 25.8 % (37.0-47.0); HEMOGLOBIN 8.3 g/dl (12.0-16.0); LYMPHOCYTES # 1.5 10^3/ul (0.8-2.9); LYMPHOCYTES % 19.6 % (15.0-51.0); MEAN CORPUSCULAR HEMOGLOBIN 26.5 pg (29.0-33.0); MEAN CORPUSCULAR HGB CONC 32.2 g/dl (32.0-37.0); MEAN CORPUSCULAR VOLUME 82.4 fl (82.0-101.0); MEAN PLATELET VOLUME 9.6 fl (7.4-10.4); MONOCYTE # 0.7 10^3/ul (0.3-0.9); MONOCYTES % 8.7 % (0.0-11.0); NEUTROPHIL # 5.3 10^3/ul (1.6-7.5); NEUTROPHILS % 69.1 % (39.0-77.0); PLATELET COUNT 309 10^3/UL (140-415); RED BLOOD COUNT 3.13 10^6/ul (4.20-5.40); RED CELL DISTRIBUTION WIDTH 15.6 % (11.5-14.5)
[2019-04-07 06:09] LABS: WHITE BLOOD COUNT 7.7 10^3/ul (4.8-10.8)
[2019-04-07 06:41] LABS: ANION GAP 4 (5-13); BLOOD UREA NITROGEN 5 mg/dl (7-20); CARBON DIOXIDE 26 mmol/L (21-31); CHLORIDE 108 mmol/L (97-110); CREATININE 0.65 mg/dl (0.44-1.00); Estimated GFR > 60 mL/min (>60); GLUCOSE 107 mg/dl (70-220); POTASSIUM 3.3 mmol/L (3.5-5.1); SODIUM 138 mmol/L (135-144)
[2019-04-07] MEDS: FAMOTIDINE 20 MG INJ IV ×2 (08:51→20:50)
[2019-04-07] MEDS: POTASSIUM CHLORIDE (SR) 20 MEQ TAB PO (12:23)
[2019-04-07] MEDS: CEFEPIME 1GM/50 ML (PMX) 50 ML IVPB (20:50)
[2019-04-07] MEDS: ACETAMINOPHEN 325 MG TAB PO (23:58)
[2019-04-08] MEDS ORDERED: SEVOFLURANE 15 MIN (07:00)
[2019-04-08] MEDS ORDERED: GLYCOPYRROLATE 0.4 MG INJ ×2 (07:00→15:11)
[2019-04-08] MEDS ORDERED: NEOSTIGMINE 3 MG/3 ML SYRINGE ×2 (07:00→15:11)
[2019-04-08 07:29] LABS: ADD MAN DIFF? NO
[2019-04-08 07:35] LABS: BASOPHILS % 0.5 % (0.0-2.0); EOSINOPHILS # 0.1 10^3/ul (0.0-0.5); HEMATOCRIT 26.9 % (37.0-47.0); HEMOGLOBIN 8.4 g/dl (12.0-16.0); LYMPHOCYTES # 1.4 10^3/ul (0.8-2.9); LYMPHOCYTES % 23.4 % (15.0-51.0); MEAN CORPUSCULAR HEMOGLOBIN 25.6 pg (29.0-33.0); MEAN CORPUSCULAR HGB CONC 31.2 g/dl (32.0-37.0); MEAN PLATELET VOLUME 9.5 fl (7.4-10.4); MONOCYTE # 0.7 10^3/ul (0.3-0.9); MONOCYTES % 12.2 % (0.0-11.0); NEUTROPHIL # 3.7 10^3/ul (1.6-7.5); NEUTROPHILS % 62.2 % (39.0-77.0); PLATELET COUNT 297 10^3/UL (140-415); RED BLOOD COUNT 3.28 10^6/ul (4.20-5.40); RED CELL DISTRIBUTION WIDTH 15.6 % (11.5-14.5)
[2019-04-08 08:03] LABS: ANION GAP 5 (5-13); BLOOD UREA NITROGEN 3 mg/dl (7-20); CALCIUM 7.4 mg/dl (8.4-10.2); CARBON DIOXIDE 29 mmol/L (21-31); CHLORIDE 105 mmol/L (97-110); CREATININE 0.52 mg/dl (0.44-1.00); Estimated GFR > 60 mL/min (>60); GLUCOSE 103 mg/dl (70-220); MAGNESIUM 1.7 mg/dl (1.7-2.5); POTASSIUM 3.2 mmol/L (3.5-5.1); SODIUM 139 mmol/L (135-144)
[2019-04-08] MEDS: FAMOTIDINE 20 MG INJ IV ×2 (09:31→21:51)
[2019-04-08] MEDS: CEFEPIME 1GM/50 ML (PMX) 50 ML IVPB ×2 (09:31→21:52)
[2019-04-08] MEDS: ACETAMINOPHEN 325 MG TAB PO (09:31)
[2019-04-08] MEDS: POTASSIUM CHLORIDE 100 ML IVPB ×2 (11:22→14:05)
[2019-04-08] MEDS ORDERED: IOHEXOL 300MG/ML 30 ML BTL (14:42)
[2019-04-08] MEDS ORDERED: ROCURONIUM 50 MG INJ (15:11)
[2019-04-08] MEDS ORDERED: LIDOCAINE 2% (SDV) 5 ML INJ (15:11)
[2019-04-08] MEDS ORDERED: PROPOFOL 20 ML (15:11)
[2019-04-08] MEDS ORDERED: SUCCINYLCHOLINE CHLORIDE 100 MG/5 ML SYG IV (15:11)
[2019-04-08] MEDS ORDERED: INDOMETHACIN 50 MG SUPP PR ×2 (15:30)
[2019-04-08] MEDS: HYDROmorphONE 1 MG/5 ML IV SYRINGE IV (18:18)
[2019-04-08] MEDS ORDERED: MEPERIDINE 25 MG INJ IV (18:30)
[2019-04-08] MEDS ORDERED: ONDANSETRON 4 MG INJ IV (18:30)
[2019-04-08] MEDS ORDERED: hydrALAzine 20 MG INJ IV (18:30)
[2019-04-08] MEDS ORDERED: LABETALOL HCL 20MG INJ IV (18:30)
[2019-04-08] MEDS ORDERED: FENTAnyl 50 MCG/ML VIAL IV ×3 (18:30)
[2019-04-08] MEDS ORDERED: HYDROmorphONE 1 MG/5 ML IV SYRINGE IV ×2 (18:30)
[2019-04-08] MEDS ORDERED: EPHEDrine 25 MG/5 ML SYG IV (18:30)
[2019-04-08] MEDS ORDERED: DIPHENHYDRAMINE 50 MG INJ IV (18:30)
[2019-04-08] MEDS ORDERED: MIDAZOLAM 1 MG/ML 2 ML INJ IV (18:30)
[2019-04-08] MEDS ORDERED: METOCLOPRAMIDE 10 MG INJ IV (18:30)
[2019-04-08] MEDS: LACTATED RINGER'S 1,000 ML IV (21:37)
[2019-04-08 22:30] LABS: ADD MAN DIFF? NO
[2019-04-08 22:31] LABS: WHITE BLOOD COUNT 8.5 10^3/ul (4.8-10.8)
[2019-04-08 22:31] LABS: BASOPHILS % 0.1 % (0.0-2.0); EOSINOPHILS % 0.1 % (0.0-7.0); HEMATOCRIT 25.9 % (37.0-47.0); HEMOGLOBIN 8.1 g/dl (12.0-16.0); LYMPHOCYTES # 0.9 10^3/ul (0.8-2.9); LYMPHOCYTES % 10.7 % (15.0-51.0); MEAN CORPUSCULAR HGB CONC 31.3 g/dl (32.0-37.0); MEAN PLATELET VOLUME 9.4 fl (7.4-10.4); MONOCYTE # 0.5 10^3/ul (0.3-0.9); MONOCYTES % 6.1 % (0.0-11.0); NEUTROPHILS % 82.2 % (39.0-77.0); PLATELET COUNT 282 10^3/UL (140-415); RED BLOOD COUNT 3.12 10^6/ul (4.20-5.40); RED CELL DISTRIBUTION WIDTH 15.3 % (11.5-14.5)
[2019-04-09] MEDS: SOD CHLORIDE 0.9% 1,000 ML IV ×4 (01:19→21:05)
[2019-04-09] MEDS ORDERED: SOD CHLORIDE 0.9% 1,000 ML IV (01:30)
[2019-04-09] MEDS: morphine 2 MG INJ IV ×2 (05:28→21:14)
[2019-04-09 05:36] LABS: ANION GAP 4 (5-13); BLOOD UREA NITROGEN 3 mg/dl (7-20); CALCIUM 7.4 mg/dl (8.4-10.2); CARBON DIOXIDE 31 mmol/L (21-31); CHLORIDE 104 mmol/L (97-110); CREATININE 0.49 mg/dl (0.44-1.00); Estimated GFR > 60 mL/min (>60); GLUCOSE 90 mg/dl (70-220); MAGNESIUM 1.6 mg/dl (1.7-2.5); POTASSIUM 3.3 mmol/L (3.5-5.1); SODIUM 139 mmol/L (135-144)
[2019-04-09] MEDS: FAMOTIDINE 20 MG INJ IV ×2 (09:59→21:06)
[2019-04-09] MEDS: CEFEPIME 1GM/50 ML (PMX) 50 ML IVPB (09:59)
[2019-04-09] MEDS: NACL 0.9% 3 ML SYG IV (14:16)
[2019-04-09] MEDS: MAGNESIUM OXIDE 400 MG TAB PO (16:18)
[2019-04-09] MEDS: POTASSIUM CHLORIDE (SR) 20 MEQ TAB PO (16:18)
[2019-04-09] MEDS: CEFTRIAXONE 1 GM/NS 50 ML IVPB (21:05)
[2019-04-10] MEDS: SOD CHLORIDE 0.9% 1,000 ML IV ×3 (04:44→17:25)
[2019-04-10] MEDS: morphine 2 MG INJ IV (05:36)
[2019-04-10 06:04] LABS: ADD MAN DIFF? NO
[2019-04-10 06:11] LABS: BASOPHILS % 0.4 % (0.0-2.0); EOSINOPHILS # 0.1 10^3/ul (0.0-0.5); EOSINOPHILS % 1.6 % (0.0-7.0); HEMOGLOBIN 8.8 g/dl (12.0-16.0); LYMPHOCYTES # 1.8 10^3/ul (0.8-2.9); LYMPHOCYTES % 19.6 % (15.0-51.0); MEAN CORPUSCULAR HEMOGLOBIN 25.7 pg (29.0-33.0); MEAN CORPUSCULAR HGB CONC 31.4 g/dl (32.0-37.0); MEAN CORPUSCULAR VOLUME 81.9 fl (82.0-101.0); MEAN PLATELET VOLUME 9.6 fl (7.4-10.4); MONOCYTE # 0.8 10^3/ul (0.3-0.9); MONOCYTES % 8.4 % (0.0-11.0); NEUTROPHIL # 6.2 10^3/ul (1.6-7.5); NEUTROPHILS % 69.4 % (39.0-77.0); PLATELET COUNT 324 10^3/UL (140-415); RED BLOOD COUNT 3.42 10^6/ul (4.20-5.40); RED CELL DISTRIBUTION WIDTH 15.7 % (11.5-14.5)
[2019-04-10 06:54] LABS: ANION GAP 4 (5-13); BLOOD UREA NITROGEN 2 mg/dl (7-20); CALCIUM 7.3 mg/dl (8.4-10.2); CARBON DIOXIDE 31 mmol/L (21-31); CHLORIDE 102 mmol/L (97-110); CREATININE 0.53 mg/dl (0.44-1.00); Estimated GFR > 60 mL/min (>60); GLUCOSE 102 mg/dl (70-220); MAGNESIUM 1.7 mg/dl (1.7-2.5); POTASSIUM 3.1 mmol/L (3.5-5.1); SODIUM 137 mmol/L (135-144)
[2019-04-10] MEDS: FAMOTIDINE 20 MG INJ IV (08:31)
[2019-04-10] MEDS: FAMOTIDINE 20 MG TAB PO (20:30)
[2019-04-10] MEDS: CEFTRIAXONE 1 GM/NS 50 ML IVPB (20:31)
[2019-04-10] MEDS: POTASSIUM CHLORIDE 40 MEQ in SOD CHLORIDE 0.9% 1,000 ML IV (20:31)
[2019-04-11] MEDS: POTASSIUM CHLORIDE 40 MEQ in SOD CHLORIDE 0.9% 1,000 ML IV (05:00)
[2019-04-11 05:25] LABS: ADD MAN DIFF? NO
[2019-04-11 05:37] LABS: BASOPHILS % 0.4 % (0.0-2.0); EOSINOPHILS # 0.1 10^3/ul (0.0-0.5); EOSINOPHILS % 1.1 % (0.0-7.0); HEMATOCRIT 24.8 % (37.0-47.0); HEMOGLOBIN 7.8 g/dl (12.0-16.0); LYMPHOCYTES # 1.4 10^3/ul (0.8-2.9); LYMPHOCYTES % 20.3 % (15.0-51.0); MEAN CORPUSCULAR HGB CONC 31.5 g/dl (32.0-37.0); MEAN CORPUSCULAR VOLUME 82.7 fl (82.0-101.0); MEAN PLATELET VOLUME 9.5 fl (7.4-10.4); MONOCYTE # 0.6 10^3/ul (0.3-0.9); MONOCYTES % 8.5 % (0.0-11.0); NEUTROPHIL # 4.8 10^3/ul (1.6-7.5); NEUTROPHILS % 69.3 % (39.0-77.0); PLATELET COUNT 284 10^3/UL (140-415); RED CELL DISTRIBUTION WIDTH 15.7 % (11.5-14.5)
[2019-04-11 06:35] LABS: ANION GAP 0 (5-13); CALCIUM 6.7 mg/dl (8.4-10.2); CARBON DIOXIDE 30 mmol/L (21-31); CHLORIDE 109 mmol/L (97-110); CREATININE 0.42 mg/dl (0.44-1.00); Estimated GFR > 60 mL/min (>60); GLUCOSE 86 mg/dl (70-220); MAGNESIUM 1.6 mg/dl (1.7-2.5); PHOSPHORUS 2.5 mg/dl (2.5-4.9); SODIUM 139 mmol/L (135-144)
[2019-04-11 06:45] LABS: BLOOD UREA NITROGEN < 2 mg/dl (7-20)
[2019-04-11 06:51] LABS: POTASSIUM 7.3 mmol/L (3.5-5.1)
[2019-04-11 08:09] LABS: ANION GAP 4 (5-13); CALCIUM 7.6 mg/dl (8.4-10.2); CARBON DIOXIDE 32 mmol/L (21-31); CHLORIDE 101 mmol/L (97-110); CREATININE 0.49 mg/dl (0.44-1.00); Estimated GFR > 60 mL/min (>60); GLUCOSE 98 mg/dl (70-220); POTASSIUM 3.5 mmol/L (3.5-5.1); SODIUM 137 mmol/L (135-144)
[2019-04-11 08:28] LABS: BLOOD UREA NITROGEN < 2 mg/dl (7-20)
[2019-04-11] MEDS: FAMOTIDINE 20 MG TAB PO ×2 (09:06→20:25)
[2019-04-11] MEDS: ACETAMINOPHEN 325 MG TAB PO (10:53)
[2019-04-11] MEDS: MAGNESIUM SULFATE 2 GM/50 ML 50 ML IVPB (10:56)
[2019-04-11] MEDS: POTASSIUM CHLORIDE (SR) 20 MEQ TAB PO (13:19)
[2019-04-11] MEDS: FUROSEMIDE 20 MG INJ IV (13:22)
[2019-04-11] MEDS ORDERED: IOHEXOL 14.3 MG(I)/ML (ADULT) BTL PO (14:00)
[2019-04-11] MEDS: CEFTRIAXONE 1 GM/NS 50 ML IVPB (20:25)
[2019-04-12] MEDS: morphine 2 MG INJ IV (02:10)
[2019-04-12 06:07] LABS: ADD MAN DIFF? NO
[2019-04-12 06:29] LABS: WHITE BLOOD COUNT 8.2 10^3/ul (4.8-10.8)
[2019-04-12 06:29] LABS: BASOPHIL # 0.1 10^3/ul (0.0-0.1); BASOPHILS % 0.6 % (0.0-2.0); EOSINOPHILS # 0.1 10^3/ul (0.0-0.5); EOSINOPHILS % 1.6 % (0.0-7.0); HEMATOCRIT 28.4 % (37.0-47.0); HEMOGLOBIN 8.9 g/dl (12.0-16.0); LYMPHOCYTES # 1.6 10^3/ul (0.8-2.9); LYMPHOCYTES % 19.7 % (15.0-51.0); MEAN CORPUSCULAR HEMOGLOBIN 26.3 pg (29.0-33.0); MEAN CORPUSCULAR HGB CONC 31.3 g/dl (32.0-37.0); MEAN PLATELET VOLUME 9.3 fl (7.4-10.4); MONOCYTE # 0.6 10^3/ul (0.3-0.9); MONOCYTES % 7.8 % (0.0-11.0); NEUTROPHIL # 5.8 10^3/ul (1.6-7.5); NEUTROPHILS % 69.8 % (39.0-77.0); PLATELET COUNT 338 10^3/UL (140-415); RED BLOOD COUNT 3.38 10^6/ul (4.20-5.40); RED CELL DISTRIBUTION WIDTH 15.9 % (11.5-14.5)
[2019-04-12 07:02] LABS: ANION GAP 5 (5-13); BLOOD UREA NITROGEN 3 mg/dl (7-20); CALCIUM 7.6 mg/dl (8.4-10.2); CARBON DIOXIDE 32 mmol/L (21-31); CHLORIDE 101 mmol/L (97-110); CREATININE 0.46 mg/dl (0.44-1.00); Estimated GFR > 60 mL/min (>60); GLUCOSE 90 mg/dl (70-220); MAGNESIUM 2.2 mg/dl (1.7-2.5); POTASSIUM 3.7 mmol/L (3.5-5.1); SODIUM 138 mmol/L (135-144)
[2019-04-12] MEDS: SOD CHLORIDE 0.9% 100 ML (08:49)
[2019-04-12] MEDS: IOHEXOL 300MG/ML 150 ML BTL (08:49)
[2019-04-12] MEDS: FAMOTIDINE 20 MG TAB PO ×2 (09:20→21:08)
[2019-04-12] MEDS: ACETAMINOPHEN 325 MG TAB PO (12:23)
[2019-04-12] MEDS: CEFTRIAXONE 1 GM/NS 50 ML IVPB (21:09)
[2019-04-13 06:00] LABS: ADD MAN DIFF? NO
[2019-04-13 06:07] LABS: BASOPHILS % 0.4 % (0.0-2.0); EOSINOPHILS # 0.1 10^3/ul (0.0-0.5); EOSINOPHILS % 1.6 % (0.0-7.0); HEMOGLOBIN 9.2 g/dl (12.0-16.0); LYMPHOCYTES # 1.6 10^3/ul (0.8-2.9); LYMPHOCYTES % 19.1 % (15.0-51.0); MEAN CORPUSCULAR HEMOGLOBIN 25.8 pg (29.0-33.0); MEAN CORPUSCULAR HGB CONC 30.7 g/dl (32.0-37.0); MEAN PLATELET VOLUME 9.5 fl (7.4-10.4); MONOCYTE # 0.6 10^3/ul (0.3-0.9); MONOCYTES % 7.2 % (0.0-11.0); NEUTROPHILS % 71.2 % (39.0-77.0); PLATELET COUNT 360 10^3/UL (140-415); RED BLOOD COUNT 3.57 10^6/ul (4.20-5.40); RED CELL DISTRIBUTION WIDTH 16.5 % (11.5-14.5)
[2019-04-13 06:07] LABS: WHITE BLOOD COUNT 8.3 10^3/ul (4.8-10.8)
[2019-04-13 06:35] LABS: MAGNESIUM 2.1 mg/dl (1.7-2.5)
[2019-04-13 06:35] LABS: PHOSPHORUS 3.7 mg/dl (2.5-4.9)
[2019-04-13 06:46] LABS: ALANINE AMINOTRANSFERASE 20 IU/L (13-69); ALBUMIN 2.5 g/dl (3.3-4.9); ALBUMIN/GLOBULIN RATIO 0.67; ALKALINE PHOSPHATASE 252 IU/L (42-121); ANION GAP 8 (5-13); ASPARTATE AMINO TRANSFERASE 26 IU/L (15-46); BILIRUBIN,INDIRECT 0.5 mg/dl (0-1.1); BILIRUBIN,TOTAL 0.5 mg/dl (0.2-1.3); BLOOD UREA NITROGEN 3 mg/dl (7-20); CALCIUM 7.9 mg/dl (8.4-10.2); CARBON DIOXIDE 30 mmol/L (21-31); CHLORIDE 99 mmol/L (97-110); CREATININE 0.55 mg/dl (0.44-1.00); Estimated GFR > 60 mL/min (>60); GLUCOSE 77 mg/dl (70-220); POTASSIUM 3.6 mmol/L (3.5-5.1); SODIUM 137 mmol/L (135-144); TOTAL PROTEIN 6.2 g/dl (6.1-8.1)
[2019-04-13] MEDS: FAMOTIDINE 20 MG TAB PO ×2 (08:38→21:09)
[2019-04-13] MEDS: CEFTRIAXONE 1 GM/NS 50 ML IVPB (21:09)
[2019-04-13] MEDS: NACL 0.9% 3 ML SYG IV (21:13)
[2019-04-14 05:35] LABS: ADD MAN DIFF? NO
[2019-04-14 05:39] LABS: WHITE BLOOD COUNT 8.2 10^3/ul (4.8-10.8)
[2019-04-14 05:39] LABS: BASOPHIL # 0.1 10^3/ul (0.0-0.1); BASOPHILS % 0.6 % (0.0-2.0); EOSINOPHILS # 0.1 10^3/ul (0.0-0.5); EOSINOPHILS % 1.6 % (0.0-7.0); HEMATOCRIT 31.1 % (37.0-47.0); HEMOGLOBIN 9.6 g/dl (12.0-16.0); LYMPHOCYTES # 1.8 10^3/ul (0.8-2.9); LYMPHOCYTES % 22.2 % (15.0-51.0); MEAN CORPUSCULAR HGB CONC 30.9 g/dl (32.0-37.0); MEAN CORPUSCULAR VOLUME 84.3 fl (82.0-101.0); MEAN PLATELET VOLUME 9.5 fl (7.4-10.4); MONOCYTE # 0.7 10^3/ul (0.3-0.9); MONOCYTES % 8.3 % (0.0-11.0); NEUTROPHIL # 5.5 10^3/ul (1.6-7.5); NEUTROPHILS % 66.9 % (39.0-77.0); PLATELET COUNT 376 10^3/UL (140-415); RED BLOOD COUNT 3.69 10^6/ul (4.20-5.40); RED CELL DISTRIBUTION WIDTH 16.9 % (11.5-14.5)
[2019-04-14 06:12] LABS: ANION GAP 6 (5-13); BLOOD UREA NITROGEN 5 mg/dl (7-20); CALCIUM 7.9 mg/dl (8.4-10.2); CARBON DIOXIDE 33 mmol/L (21-31); CHLORIDE 101 mmol/L (97-110); CREATININE 0.56 mg/dl (0.44-1.00); Estimated GFR > 60 mL/min (>60); GLUCOSE 101 mg/dl (70-220); POTASSIUM 4.2 mmol/L (3.5-5.1); SODIUM 140 mmol/L (135-144)
[2019-04-14 06:29] LABS: MAGNESIUM 2.2 mg/dl (1.7-2.5)
[2019-04-14 06:29] LABS: PHOSPHORUS 3.7 mg/dl (2.5-4.9)
[2019-04-14] MEDS: FAMOTIDINE 20 MG TAB PO ×2 (09:40→20:18)
[2019-04-14] MEDS: CEFTRIAXONE 1 GM/NS 50 ML IVPB (20:18)
[2019-04-15 06:02] LABS: ADD MAN DIFF? NO
[2019-04-15 06:08] LABS: BASOPHIL # 0.1 10^3/ul (0.0-0.1); BASOPHILS % 0.7 % (0.0-2.0); EOSINOPHILS # 0.2 10^3/ul (0.0-0.5); EOSINOPHILS % 2.1 % (0.0-7.0); HEMATOCRIT 29.8 % (37.0-47.0); HEMOGLOBIN 9.3 g/dl (12.0-16.0); LYMPHOCYTES % 28.7 % (15.0-51.0); MEAN CORPUSCULAR HEMOGLOBIN 26.7 pg (29.0-33.0); MEAN CORPUSCULAR HGB CONC 31.2 g/dl (32.0-37.0); MEAN CORPUSCULAR VOLUME 85.6 fl (82.0-101.0); MEAN PLATELET VOLUME 9.4 fl (7.4-10.4); MONOCYTE # 0.6 10^3/ul (0.3-0.9); MONOCYTES % 9.1 % (0.0-11.0); NEUTROPHIL # 4.2 10^3/ul (1.6-7.5); NEUTROPHILS % 59.1 % (39.0-77.0); PLATELET COUNT 336 10^3/UL (140-415); RED BLOOD COUNT 3.48 10^6/ul (4.20-5.40)
[2019-04-15 06:17] LABS: MAGNESIUM 2.2 mg/dl (1.7-2.5)
[2019-04-15 06:19] LABS: ANION GAP 8 (5-13); BLOOD UREA NITROGEN 7 mg/dl (7-20); CALCIUM 8.2 mg/dl (8.4-10.2); CARBON DIOXIDE 31 mmol/L (21-31); CHLORIDE 100 mmol/L (97-110); CREATININE 0.56 mg/dl (0.44-1.00); Estimated GFR > 60 mL/min (>60); GLUCOSE 99 mg/dl (70-220); SODIUM 139 mmol/L (135-144)
[2019-04-15] MEDS: FAMOTIDINE 20 MG TAB PO ×2 (08:33→20:51)
[2019-04-15] MEDS: CEFTRIAXONE 1 GM/NS 50 ML IVPB (20:52)
[2019-04-16 06:01] LABS: ADD MAN DIFF? NO
[2019-04-16 06:07] LABS: BASOPHILS % 0.6 % (0.0-2.0); EOSINOPHILS # 0.2 10^3/ul (0.0-0.5); EOSINOPHILS % 2.9 % (0.0-7.0); HEMATOCRIT 29.5 % (37.0-47.0); HEMOGLOBIN 9.1 g/dl (12.0-16.0); LYMPHOCYTES # 1.9 10^3/ul (0.8-2.9); LYMPHOCYTES % 29.4 % (15.0-51.0); MEAN CORPUSCULAR HEMOGLOBIN 26.5 pg (29.0-33.0); MEAN CORPUSCULAR HGB CONC 30.8 g/dl (32.0-37.0); MEAN CORPUSCULAR VOLUME 85.8 fl (82.0-101.0); MEAN PLATELET VOLUME 9.8 fl (7.4-10.4); MONOCYTE # 0.6 10^3/ul (0.3-0.9); NEUTROPHIL # 3.6 10^3/ul (1.6-7.5); NEUTROPHILS % 56.9 % (39.0-77.0); PLATELET COUNT 316 10^3/UL (140-415); RED BLOOD COUNT 3.44 10^6/ul (4.20-5.40); RED CELL DISTRIBUTION WIDTH 17.2 % (11.5-14.5)
[2019-04-16 06:07] LABS: WHITE BLOOD COUNT 6.3 10^3/ul (4.8-10.8)
[2019-04-16 06:39] LABS: PHOSPHORUS 4.4 mg/dl (2.5-4.9)
[2019-04-16 06:39] LABS: MAGNESIUM 2.2 mg/dl (1.7-2.5)
[2019-04-16 06:50] LABS: ANION GAP 7 (5-13); BLOOD UREA NITROGEN 12 mg/dl (7-20); CALCIUM 8.1 mg/dl (8.4-10.2); CARBON DIOXIDE 28 mmol/L (21-31); CHLORIDE 103 mmol/L (97-110); CREATININE 0.51 mg/dl (0.44-1.00); Estimated GFR > 60 mL/min (>60); GLUCOSE 106 mg/dl (70-220); POTASSIUM 3.9 mmol/L (3.5-5.1); SODIUM 138 mmol/L (135-144)
[2019-04-16] MEDS: FAMOTIDINE 20 MG TAB PO (09:21)
== END 2019-04-16 18:55 | disposition home or self-care (01) | DRG 853 ==
LOC: ICU 04-05 08:25 → 2NE 04-09 12:15 → ICU 04-08 20:59 → E/R 00:48 → 6WM 04-06 22:02
PROC: 0WPF30Z Removal of Drainage Device from Abdominal Wall, Percutaneous Approach (ICD-10-PCS; principal; 2019-04-08 15:45)
PROC: 30233N1 Transfusion of Nonautologous Red Blood Cells into Peripheral Vein, Percutaneous Approach (ICD-10-PCS; 2019-04-08 15:45)
PROC: 0FPB8DZ Removal of Intraluminal Device from Hepatobiliary Duct, Via Natural or Artificial Opening Endoscopic (ICD-10-PCS; 2019-04-08 15:45)
PROC: 0FPD8DZ Removal of Intraluminal Device from Pancreatic Duct, Via Natural or Artificial Opening Endoscopic (ICD-10-PCS; 2019-04-08 15:45)
PROC: 0F768DZ Dilation of Left Hepatic Duct with Intraluminal Device, Via Natural or Artificial Opening Endoscopic (ICD-10-PCS; 2019-04-08 15:45)
PROC: 0F758DZ Dilation of Right Hepatic Duct with Intraluminal Device, Via Natural or Artificial Opening Endoscopic (ICD-10-PCS; 2019-04-08 15:45)
PROC: 02HV33Z Insertion of Infusion Device into Superior Vena Cava, Percutaneous Approach (ICD-10-PCS; 2019-04-08 15:45)
PROC: 0F913ZX Drainage of Right Lobe Liver, Percutaneous Approach, Diagnostic (ICD-10-PCS; 2019-04-08 15:45)
DX: A41.9 Sepsis, unspecified organism (principal); K75.0 Abscess of liver; R65.21 Severe sepsis with septic shock; K80.00 Calculus of gallbladder with acute cholecystitis without obstruction; J90 Pleural effusion, not elsewhere classified; R00.1 Bradycardia, unspecified; E66.01 Morbid (severe) obesity due to excess calories; Z68.28 Body mass index [BMI] 28.0-28.9, adult; D64.9 Anemia, unspecified; Z87.19 Personal history of other diseases of the digestive system; I95.9 Hypotension, unspecified
CPT/HCPCS: 36415; 36430; 36569; 36589; 71045; 74176; 74177; 74330; 76705; 76937; 77012; 80048; 80053; 80202; 81001; 81025; 82962; 83036; 83605; 83690; 83735; 84100; 84484; 84703; 85025; 85610; 85651; 85730; 86140; 86850; 86900; 86901; 86920; 87040-91; 87070; 87081; 87086; 93005; 96365; 96375; 99285-25